=== PATIENT | male | born 1990 | race Caucasian/White ===

== ENCOUNTER 2019-12-27 15:54 | Inpatient (IN) | payer BC, OTHER ==
[~2019-12-27] VITALS: Ht 177.8 cm; Wt 63.2 kg
[2019-12-27] MEDS ORDERED: FAMOTIDINE 20 MG/2 ML ONE (16:59)
[2019-12-27] MEDS ORDERED: ONDANSETRON 2MG/ML, 2ML ONE ×2 (16:59→18:39)
[2019-12-27] MEDS ORDERED: MORPHINE SULFATE 4 MG/ML, 1ML ONE (16:59)
[2019-12-27] MEDS ORDERED: SODIUM CHLORIDE 0.9% 1,000ML IVBOLUS ONE (17:00)
[2019-12-27] MEDS ORDERED: FAMOTIDINE 20 MG/2 ML IV ONE (17:00)
[2019-12-27] MEDS ORDERED: ONDANSETRON 2MG/ML, 2ML IVPush ONE ×2 (17:00→19:00)
[2019-12-27] MEDS ORDERED: MORPHINE SULFATE 4 MG/ML, 1ML IVPush PRN (17:00)
[2019-12-27 17:06] LABS: MEAN CORPUSCULAR HEMOGLOBIN 31.7 pg (27.5-34.5); MEAN CORPUSCULAR VOLUME 93.3 fL (81-97); MEAN PLATELET VOLUME 9.1 fL (7.4-10.4); PLATELET COUNT 396 x10^3/uL (130-400); RED CELL DISTRIBUTION WIDTH 13.1 % (9.4-14.8)
[2019-12-27 17:07] LABS: MD YES
[2019-12-27 17:17] LABS: ALBUMIN 6.2 g/dL (3.4-5.0); ANION GAP 25 mmol/L (5-15); CALCIUM 11.3 mg/dL (8.5-10.1); CHLORIDE 87 mmol/L (98-107)
[2019-12-27 17:20] LABS: ALANINE AMINOTRANSFERASE 37 U/L (12-78); ALKALINE PHOSPHATASE 83 U/L (45-117); BILIRUBIN,TOTAL 1.6 mg/dL (0.2-1.0); CREATININE 7.09 mg/dL (0.7-1.3); TOTAL PROTEIN 11.3 g/dL (6.4-8.2)
[2019-12-27 17:29] LABS: BAND#(MANUAL) 0.79 x10^3/uL; BANDS%(MANUAL) 3 % (0-7); LYMPH#(MANUAL) 1.58 x10^3/uL (1-3.4); LYMPHS% (MANUAL) 6 % (22-44); MONOS#(MANUAL) 0.79 x10^3/uL (0.3-2.7); MONOS% (MANUAL) 3 % (2-9); SEG#(MANUAL) 23.14 x10^3/uL (1.8-6.8); SEGS% (MANUAL) 88 % (42-75)
[2019-12-27 17:30] LABS: <PLATELET ESTIMATE> ADEQUATE; <PLT MORPHOLOGY> NORMAL PLT MORPH; <RBC MORPHOLOGY> NORMAL
[2019-12-27] MEDS: SODIUM BICARBONATE 8.4% 150 MEQ in DEXTROSE 5% 1,000 ML IV SCH (18:00)
[2019-12-27 18:19] LABS: CHOL/HDL RATIO 2.3; LDL/HDL RATIO 0.9 (0.5-3.0)
--- NOTE | 2019-12-27 19:02 | NUR ---
REPORT FROM TIFFANIE GOLDSMITH. PT CARE RESPONSIBLITIES ASSUMED.
[2019-12-27] MEDS ORDERED: NEXIUM (19:03)
[2019-12-27] MEDS ORDERED: PROMETHAZINE 25 MG/ML, 1ML ONE (19:23)
[2019-12-27] MEDS ORDERED: PROMETHAZINE 25 MG/ML, 1ML IM ONE (19:30)
[2019-12-27] MEDS ORDERED: LACTATED RINGERS 1,000 ML IVBOLUS ONE (20:30)
--- NOTE | 2019-12-27 20:30 | NUR ---
PT PARTIALLY MEETS SIRS CRITERIA, SPOKE WITH MD ABOUT FLUIDS AND ABX. PER MD NO SOURCE OF INFECTION AND SYMPTOMS PRESUMPTIVE OF PANCREATITIS, NO NEED FOR ABX AT THIS TIME. GIVE 1L LACTATED RINGERS.
[2019-12-27] MEDS ORDERED: ONDANSETRON 2MG/ML, 2ML IVPush PRN (21:00)
[2019-12-27] MEDS ORDERED: PROMETHAZINE 25 MG/ML, 1ML IM PRN (21:00)
[2019-12-27] MEDS ORDERED: ACETAMINOPHEN 325 MG TABLET PO PRN (21:00)
[2019-12-27] MEDS ORDERED: morphine SULFATE 10 MG/ML, 1ML IVPush PRN (21:00)
[2019-12-27] MEDS ORDERED: LORazepam 2 MG/ML, 1ML IVPush PRN (21:00)
[2019-12-27] MEDS ORDERED: THIAMINE 200 MG in SODIUM CHLORIDE 0.9% 50 ML IV ONE (21:00)
[2019-12-27] MEDS ORDERED: hydrALAzine 20 MG/ML, 1ML IVPush PRN (21:00)
--- NOTE | 2019-12-27 21:32 | NUR ---
ATTEMPTED TO CALL REPORT, RECEIVING RN PERFORMING PT CARE ELSEWHERE, WILL TRY AGAIN. PT RESTING IN BED, MOTHER AT BEDSIDE. DENIES ANY FURTHER NAUSEA SINCE PHENERGAN. UPDATED ON PLAN OF CARE. VERBALIZES UNDERSTANDING, DENIES ANY FURTHER NEEDS OR CONCERNS AT THIS TIME.
--- NOTE | 2019-12-27 21:38 | NUR ---
REPORT TO TIFFANIE ROMAN.
[2019-12-27 22:33] LABS: MICROSCOPIC INDICATED
[2019-12-27] MEDS: HEPARIN 5,000 UNITS/ML, 1ML SQ SCH (22:39)
[2019-12-27 22:45] LABS: AMPHETAMINE SCREEN, URINE Negative (Negative); BARBITURATE SCREEN, URINE Negative (Negative); BENZODIAZEPINE SCREEN, URINE Negative (Negative); CANNABINOID SCREEN, URINE Positive (Negative); COCAINE SCREEN, URINE Negative (Negative); METHADONE SCREEN, URINE Negative (Negative); OPIATE SCREEN, URINE Positive (Negative); POTASSIUM,URINE RANDOM 101 mmol/L; SODIUM,URINE RANDOM 20 mmol/L
[2019-12-27 22:47] LABS: CHLORIDE,URINE RANDOM < 10 mmol/L
[2019-12-27 22:54] VITALS: BP 128/89
[2019-12-28] MEDS: LACTATED RINGERS 1,000 ML IV SCH ×7 (00:10→23:38)
[2019-12-28] MEDS: SODIUM BICARBONATE 8.4% 150 MEQ in DEXTROSE 5% 1,000 ML IV SCH ×4 (00:26→23:38)
[2019-12-28 00:27] LABS: ANION GAP 12 mmol/L (5-15); CALCIUM 9.2 mg/dL (8.5-10.1); CHLORIDE 92 mmol/L (98-107); CREATININE 4.55 mg/dL (0.7-1.3)
[2019-12-28 00:41] LABS: CREATINE KINASE, TOTAL 1205 U/L (39-308)
[2019-12-28] MEDS: CEFTRIAXONE PMX 1GM/50ML 50 ML IV SCH (02:13)
[2019-12-28 02:19] VITALS: BP 111/72
[2019-12-28] MEDS: HEPARIN 5,000 UNITS/ML, 1ML SQ SCH ×3 (04:34→19:55)
[2019-12-28 07:19] VITALS: BP 111/69
[2019-12-28 08:49] LABS: ANION GAP 7 mmol/L (5-15); CALCIUM 8.7 mg/dL (8.5-10.1); CHLORIDE 97 mmol/L (98-107); CREATININE 2.46 mg/dL (0.7-1.3)
[2019-12-28 08:56] LABS: BASOPHILS # (AUTO) 0.01 x10^3/uL (0-0.1); BASOPHILS % (AUTO) 0 % (0-1); EOSINOPHILS % (AUTO) 0 % (1-7); LYMPHOCYTES # (AUTO) 0.98 x10^3/uL (1-3.4); LYMPHOCYTES % (AUTO) 7 % (22-44); MD SCAN; MEAN CORPUSCULAR HEMOGLOBIN 32.3 pg (27.5-34.5); MEAN CORPUSCULAR HGB CONC 34.2 g/dL (33.2-36.2); MEAN CORPUSCULAR VOLUME 94.3 fL (81-97); MEAN PLATELET VOLUME 8.5 fL (7.4-10.4); MONOCYTES # (AUTO) 1.39 x10^3/uL (0.2-0.8); MONOCYTES % (AUTO) 10 % (2-9); NEUTROPHILS # (AUTO) 11.24 x10^3/uL (1.8-6.8); NEUTROPHILS % (AUTO) 83 % (42-75); PLATELET COUNT 235 x10^3/uL (130-400); RED BLOOD COUNT 4.56 x10^6/uL (4.38-5.82); RED CELL DISTRIBUTION WIDTH 13.1 % (9.4-14.8)
[2019-12-28 09:03] LABS: CREATINE KINASE, TOTAL 1027 U/L (39-308)
[2019-12-28] MEDS ORDERED: POTASSIUM CHLORIDE 20 MEQ TAB.ER.PRT PO ONE (11:30)
[2019-12-28 12:58] VITALS: BP 125/72
[2019-12-28 20:40] VITALS: BP 126/75
[2019-12-29 01:41] VITALS: BP 117/70
[2019-12-29] MEDS: CEFTRIAXONE PMX 1GM/50ML 50 ML IV SCH (02:00)
[2019-12-29] MEDS: HEPARIN 5,000 UNITS/ML, 1ML SQ SCH (02:00)
[2019-12-29] MEDS: LACTATED RINGERS 1,000 ML IV SCH (04:24)
[2019-12-29 05:36] LABS: ANION GAP 6 mmol/L (5-15); CALCIUM 8.4 mg/dL (8.5-10.1); CHLORIDE 105 mmol/L (98-107); CREATININE 1.09 mg/dL (0.7-1.3)
[2019-12-29 05:44] LABS: BASOPHILS # (AUTO) 0.04 x10^3/uL (0-0.1); BASOPHILS % (AUTO) 1 % (0-1); EOSINOPHILS # (AUTO) 0.01 x10^3/uL (0-0.4); EOSINOPHILS % (AUTO) 0 % (1-7); LYMPHOCYTES # (AUTO) 1.81 x10^3/uL (1-3.4); LYMPHOCYTES % (AUTO) 29 % (22-44); MD NO; MEAN CORPUSCULAR HEMOGLOBIN 31.9 pg (27.5-34.5); MEAN CORPUSCULAR HGB CONC 33.7 g/dL (33.2-36.2); MEAN CORPUSCULAR VOLUME 94.7 fL (81-97); MEAN PLATELET VOLUME 9.1 fL (7.4-10.4); MONOCYTES # (AUTO) 0.66 x10^3/uL (0.2-0.8); MONOCYTES % (AUTO) 11 % (2-9); NEUTROPHILS # (AUTO) 3.65 x10^3/uL (1.8-6.8); NEUTROPHILS % (AUTO) 59 % (42-75); PLATELET COUNT 137 x10^3/uL (130-400); RED BLOOD COUNT 3.91 x10^6/uL (4.38-5.82)
[2019-12-29 07:35] VITALS: BP 134/82
[2019-12-29 13:09] VITALS: BP 129/86
== END 2019-12-29 14:44 | disposition home or self-care (01) | DRG 871 ==
LOC: ED 18:34 → EDIP 20:43 → 4EST 22:15 → DCLOUNGE 12-29 14:39
PROVIDERS: ADMIT Family Medicine; ATTEND Family Medicine
DX: A41.9 Sepsis, unspecified organism (principal); K85.20 Alcohol induced acute pancreatitis without necrosis or infection; N17.0 Acute kidney failure with tubular necrosis; E87.1 Hypo-osmolality and hyponatremia; E87.2 Acidosis; M62.82 Rhabdomyolysis; N39.0 Urinary tract infection, site not specified; D75.1 Secondary polycythemia; E86.0 Dehydration; E86.1 Hypovolemia; F10.10 Alcohol abuse, uncomplicated; F12.10 Cannabis abuse, uncomplicated; K21.9 Gastro-esophageal reflux disease without esophagitis; K70.10 Alcoholic hepatitis without ascites; Z79.899 Other long term (current) drug therapy; Y90.9 Presence of alcohol in blood, level not specified
CPT/HCPCS: 36415; 84145; J3490; 76700; 80048; 80053; 80061; 80307; 81001; 82436; 82550; 82570; 83605; 83690; 83735; 84100; 84133; 84300; 85025; 87040; 87086; 93005; 96374; 96375; 99285; G0378; J0696; J1644; J2405; J2550; J3411; J7070; J2270; J7030; J7120

== ENCOUNTER 2020-01-02 12:43 | Emergency (ER) | payer BC ==
[~2020-01-02] VITALS: Ht 177.8 cm; Wt 64.3 kg
[~2020-01-02 12:43] MED LIST: NEXIUM
--- NOTE | 2020-01-02 13:00 | NUR ---
TRAINING AND DEVELOPMENT DIRECTOR: PT AMBULATORY TO ROOM FROM LOBBY
--- NOTE | 2020-01-02 14:01 | NUR ---
PT GIVEN URINE CUP AND AMBULATED TO BATHROOM WITH STEADY GAIT
--- NOTE | 2020-01-02 14:10 | NUR ---
BREAK RN NOTE: REPORT TAKEN FROM TIFFANIE QURESHI. MERLINE AMBRIZ AT BEDSIDE FOR INITIAL ASSESSMENT.
[2020-01-02] MEDS ORDERED: ESOM20CA PO (14:15)
--- NOTE | 2020-01-02 14:42 | NUR ---
urine sent to lab.
--- NOTE | 2020-01-02 14:50 | NUR ---
REPORT GIVEN BACK TO PRIMARY RN KIERA.
[2020-01-02 14:56] LABS: MICROSCOPIC NOT IND
[2020-01-02 15:07] LABS: ALANINE AMINOTRANSFERASE 61 U/L (12-78); ANION GAP 6 mmol/L (5-15); BASOPHILS # (AUTO) 0.04 x10^3/uL (0-0.1); BASOPHILS % (AUTO) 1 % (0-1); CALCIUM 8.8 mg/dL (8.5-10.1); CHLORIDE 105 mmol/L (98-107); CREATININE 0.99 mg/dL (0.7-1.3); EOSINOPHILS # (AUTO) 0.04 x10^3/uL (0-0.4); EOSINOPHILS % (AUTO) 1 % (1-7); LYMPHOCYTES # (AUTO) 1.93 x10^3/uL (1-3.4); LYMPHOCYTES % (AUTO) 29 % (22-44); MD NO; MEAN CORPUSCULAR HEMOGLOBIN 32.1 pg (27.5-34.5); MEAN CORPUSCULAR HGB CONC 33.9 g/dL (33.2-36.2); MEAN CORPUSCULAR VOLUME 94.6 fL (81-97); MEAN PLATELET VOLUME 8.3 fL (7.4-10.4); MONOCYTES # (AUTO) 0.47 x10^3/uL (0.2-0.8); MONOCYTES % (AUTO) 7 % (2-9); NEUTROPHILS # (AUTO) 4.24 x10^3/uL (1.8-6.8); NEUTROPHILS % (AUTO) 63 % (42-75); PLATELET COUNT 243 x10^3/uL (130-400); RED BLOOD COUNT 4.59 x10^6/uL (4.38-5.82); RED CELL DISTRIBUTION WIDTH 12.3 % (9.4-14.8)
[2020-01-02 15:09] LABS: ALKALINE PHOSPHATASE 47 U/L (45-117); BILIRUBIN,TOTAL 0.5 mg/dL (0.2-1.0); TOTAL PROTEIN 7.2 g/dL (6.4-8.2)
--- NOTE | 2020-01-02 16:02 | NUR ---
REMINDED ABOUT DC PAPERWORK, TO PRINT
[2020-01-02 16:22] VITALS: BP 119/80
== END 2020-01-02 16:24 | disposition home or self-care (01) ==
LOC: ED 13:58
DX: R10.9 Unspecified abdominal pain (principal)
CPT/HCPCS: 36415; 80053; 81003; 83690; 85025; 99283